=== PATIENT | female | born 1980 | race Caucasian/White ===

== ENCOUNTER 2019-01-27 04:41 | Emergency (ER) | payer MEDICAID, OTHER ==
[2019-01-27] MEDS ORDERED: KETOROLAC TROMETHAMINE INJ/PF 30 MG/1 ML SDV IV ONE (05:31)
[2019-01-27] MEDS ORDERED: ONDANSETRON HCL INJ/PF 4 MG/2 ML SDV IV ONE (05:31)
--- NOTE | 2019-01-27 05:34 | ER Document Report ---
ED General - General Chief Complaint: Abdominal Pain Stated Complaint: CHEST PAIN Time Seen by Provider: 01/27/19 05:22 Mode of Arrival: Ambulatory Information source: Patient Notes: This 38-year-old female presents emergency department with right upper quad abdominal pain that radiates to her back. She reports she feels very nauseated. Reports symptoms started last week. Patient is currently visiting [place] but lives in [facility]. She reports last week when the symptoms started she went to see her primary care provider who did some lab work-up. She was informed that her white count was up but nothing else. She is waiting for a gallbladder ultrasound. She reports for the last 2 days she is felt okay. She came to visit her daughter and had sloppy Roc's WITH [place] fries last night. Patient reports around 11 PM she woke up with the right upper quad pain that radiates to her back with nausea. TRAVEL OUTSIDE OF THE [place] IN LAST 30 DAYS: No - HPI Onset: Last week Quality of pain: Achy Severity: Severe Associated symptoms: Nausea Exacerbated by: Denies Relieved by: Denies Similar symptoms previously: Yes Recently seen / treated by doctor: Yes - Related Data Allergies/Adverse Reactions: No Known Allergies Allergy (Unverified 05/15/16 22:02) Past Medical History - General Information source: Patient - Social History Smoking Status: Current Every Day Smoker Cigarette use (# per day): Yes Frequency of alcohol use: None Drug Abuse: None Lives with: Family Family History: Reviewed & Not Pertinent Patient has suicidal ideation: No Patient has homicidal ideation: No - Medical History Medical History: Negative Past Surgical History: Reports: Hx Section, Hx Tubal Ligation Review of Systems - Review of Systems Notes: Review HPI for review of systems., All other systems negative Physical Exam - Vital signs Vitals: Temp Pulse Resp BP Pulse Ox 98.5 F 79 18 129/80 H 99 01/27/19 04:51 01/27/19 04:51 01/27/19 04:51 01/27/19 04:51 01/27/19 04:51 - General General appearance: Alert, Anxious In distress: Mild - HEENT Head: Normocephalic Eyes: Normal Conjunctiva: Normal Neck: Normal, Supple. No: Lymphadenopathy - Respiratory Respiratory status: No respiratory distress Chest status: Nontender Breath sounds: Normal Chest palpation: Normal - Cardiovascular Rhythm: Regular Heart sounds: Normal auscultation Murmur: No - Abdominal Inspection: Normal Distension: No distension Bowel sounds: Normal Tenderness: Tender - RUQ Organomegaly: No organomegaly - Back Back: Normal, Nontender - Extremities General upper extremity: Normal ROM General lower extremity: Normal ROM Course - Re-evaluation Re-evalutation: 01/27/19 05:38 38-year-old female presents with right upper quad abdominal pain that radiates to her back with nausea. Will evaluate for gallstones. Treat with Toradol and Zofran while waiting for results. 01/27/19 08:05 Leukocytes slightly elevated otherwise unremarkable, awaiting for official ultrasound report. pt reports she feels much better. Report given to CODEY Talbert. Dictation of this chart was performed using voice recognition software; therefor e, there may be some unintended grammatical errors. 01/27/19 05:30 01/27/19 05:30 MCV 83 fl (80-97) 01/27/19 05:30 MCH 27.3 pg (27.0-33.4) 01/27/19 05:30 MCHC 32.8 g/dL (32.0-36.0) 01/27/19 05:30 RDW 14.4 % (11.5-14.0) H 01/27/19 05:30 Seg Neutrophils % 73.1 % (42-78) 01/27/19 05:30 Lymphocytes % 19.4 % (13-45) 01/27/19 05:30 Monocytes % 5.7 % (3-13) 01/27/19 05:30 Eosinophils % 1.6 % (0-6) 01/27/19 05:30 Basophils % 0.2 % (0-2) 01/27/19 05:30 Absolute Neutrophils 10.0 10^3/uL (1.7-8.2) H 01/27/19 05:30 Absolute Lymphocytes 2.7 10^3/uL (0.5-4.7) 01/27/19 05:30 Absolute Monocytes 0.8 10^3/uL (0.1-1.4) 01/27/19 05:30 Absolute Eosinophils 0.2 10^3/uL (0.0-0.6) 01/27/19 05:30 Absolute Basophils 0.0 10^3/uL (0.0-0.2) 01/27/19 05:30 Chloride 104 mmol/L (98-107) 01/27/19 05:30 Carbon Dioxide 27 mmol/L (22-30) 01/27/19 05:30 Anion Gap 8 (5-19) 01/27/19 05:30 Est GFR ( Amer) > 60 (>60) 01/27/19 05:30 Est GFR (Non-Af Amer) > 60 (>60) 01/27/19 05:30 Glucose 127 mg/dL (75-110) H 01/27/19 05:30 Calcium 8.6 mg/dL (8.4-10.2) 01/27/19 05:30 Total Bilirubin 0.3 mg/dL (0.2-1.3) 01/27/19 05:30 AST 14 U/L (14-36) 01/27/19 05:30 Alkaline Phosphatase 85 U/L (38-126) 01/27/19 05:30 Total Protein 6.8 g/dL (6.3-8.2) 01/27/19 05:30 Albumin 3.8 g/dL (3.5-5.0) 01/27/19 05:30 Lipase 61.9 U/L (23-300) 01/27/19 05:30 Serum HCG, Qual NEGATIVE (NEGATIVE) 01/27/19 05:30 Urine Color YELLOW 01/27/19 06:38 Urine Appearance CLEAR 01/27/19 06:38 Urine pH 6.0 (5.0-9.0) 01/27/19 06:38 Ur Specific [place] 1.024 01/27/19 06:38 Urine Protein NEGATIVE mg/dL (NEGATIVE) 01/27/19 06:38 Urine Glucose (UA) NEGATIVE mg/dL (NEGATIVE) 01/27/19 06:38 Urine Ketones NEGATIVE mg/dL (NEGATIVE) 01/27/19 06:38 Urine Blood SMALL (NEGATIVE) H 01/27/19 06:38 Urine Nitrite NEGATIVE (NEGATIVE) 01/27/19 06:38 Ur Leukocyte Esterase NEGATIVE (NEGATIVE) 01/27/19 06:38 Urine WBC (Auto) 0 /HPF 01/27/19 06:38 Urine RBC (Auto) 3 /HPF 01/27/19 06:38 01/27/19 08:19 - Vital Signs Vital signs: Temp Pulse Resp BP Pulse Ox 97.9 F 74 16 123/77 100 01/27/19 08:58 01/27/19 08:58 01/27/19 09:03 01/27/19 08:58 01/27/19 08:58 - Laboratory Result Diagrams: 01/27/19 05:30 01/27/19 05:30 Laboratory results interpreted by me: 01/27/19 01/27/19 01/27/19 05:30 05:30 06:38 WBC 13.7 H RDW 14.4 H Absolute Neutrophils 10.0 H Glucose 127 H Urine Blood SMALL H - Diagnostic Test Radiology reviewed: Image reviewed Discharge - Discharge Clinical Impression: Abdominal pain, Gall bladder stones Condition: Stable Disposition: HOME, SELF-CARE Instructions: Abdominal Pain ([facility]), Antinausea Medication ([facility]), Antispasmodics ([facility]), Gallbladder Disease ([facility]), Low-Fat Diet ([facility]), Toradol Injection ([facility]) Additional Instructions: *You have been evaluated for abdominal pain, gall stones *Take medication as prescribed *low fat diet stay away from fatty foods *Follow up with a surgeon upon return to [facility] *Return to ED for worsening condition, changes, needs *Return to ED if not better in 24 hours Prescriptions: Dicyclomine HCl [Bentyl 20 mg Tablet] 20 mg PO QID #40 tablet Ketorolac Tromethamine [Toradol 10 mg Tablet] 10 mg PO Q6 #15 tablet Ondansetron [Zofran Odt 4 mg Tablet] 1 - 2 tab PO Q4H #10 tab.rapdis Forms: Elevated Blood Pressure
[2019-01-27 05:53] LABS: ABSOLUTE EOSINOPHILS # (AUTO) 0.2 10^3/uL (0.0-0.6); ABSOLUTE LYMPHOCYTES (AUTO) 2.7 10^3/uL (0.5-4.7); ABSOLUTE MONOCYTES (AUTO) 0.8 10^3/uL (0.1-1.4); BASOPHILS % (AUTO) 0.2 % (0-2); EOSINOPHILS % (AUTO) 1.6 % (0-6); HEMATOCRIT 37.9 % (36.0-47.0); HEMOGLOBIN 12.4 g/dL (12.0-15.5); LYMPHOCYTES % (AUTO) 19.4 % (13-45); MEAN CORPUSCULAR HEMOGLOBIN 27.3 pg (27.0-33.4); MEAN CORPUSCULAR HGB CONC 32.8 g/dL (32.0-36.0); MEAN CORPUSCULAR VOLUME 83 fl (80-97); MONOCYTES % (AUTO) 5.7 % (3-13); PLATELET COUNT 281 10^3/uL (150-450); RED BLOOD COUNT 4.56 10^6/uL (3.72-5.28); RED CELL DISTRIBUTION WIDTH 14.4 % (11.5-14.0); SEGMENTED NEUTROPHILS % (AUTO) 73.1 % (42-78); TOTAL CELLS COUNTED % (AUTO) 100 %; WHITE BLOOD COUNT 13.7 10^3/uL (4.0-10.5)
[2019-01-27 06:20] LABS: ALBUMIN 3.8 g/dL (3.5-5.0); ALKALINE PHOSPHATASE 85 U/L (38-126); ANION GAP 8 (5-19); ASPARTATE AMINO TRANSFERASE 14 U/L (14-36); BILIRUBIN,DIRECT 0.3 mg/dL (0.0-0.4); BILIRUBIN,TOTAL 0.3 mg/dL (0.2-1.3); BLOOD UREA NITROGEN 16 mg/dL (7-20); CALCIUM 8.6 mg/dL (8.4-10.2); CARBON DIOXIDE 27 mmol/L (22-30); CHLORIDE 104 mmol/L (98-107); GLUCOSE 127 mg/dL (75-110); POTASSIUM 4.5 mmol/L (3.6-5.0); TOTAL PROTEIN 6.8 g/dL (6.3-8.2)
[2019-01-27 06:59] LABS: APPEARANCE,URINE CLEAR; BILIRUBIN,URINE NEGATIVE (NEGATIVE); COLOR,URINE YELLOW; GLUCOSE, URINE NEGATIVE (NEGATIVE); KETONES,URINE NEGATIVE (NEGATIVE); LEUKOCYTE ESTERASE,URINE NEGATIVE (NEGATIVE); NITRITE,URINE NEGATIVE (NEGATIVE); PROTEIN,URINE NEGATIVE (NEGATIVE); URINE SPECIFIC GRAVITY 1.024; UROBILINOGEN,URINE NEGATIVE mg/dL (<2.0)
--- NOTE | 2019-01-27 08:21 | RADIOLOGY REPORT (SQ) ---
EXAM DESCRIPTION: U/S ABDOMEN LIMITED W/O DOP COMPLETED DATE/TIME: 01/27/2019 7:34 am REASON FOR STUDY: abd pain COMPARISON: None. TECHNIQUE: Dynamic and static grayscale images acquired of the abdomen and recorded on PACS. Additio nal selected color Doppler and spectral images recorded. LIMITATIONS: None. FINDINGS: PANCREAS: No masses. Visualized pancreatic duct normal caliber. LIVER: No masses. Echotexture normal. LIVER VASCULATURE: Normal directional flow of the main portal vein and hepatic veins. GALLBLADDER: Large gallstone in the gallbladder. Normal wall thickness. No pericholecystic fluid. ULTRASOUND-DETECTED GOMEZ'S SIGN: Negative. INTRAHEPATIC DUCTS AND COMMON DUCT: CBD and intrahepatic ducts normal caliber. No filling defects. INFERIOR VENA CAVA: Normal flow. AORTA: No aneurysm. RIGHT KIDNEY: Normal size. Normal echogenicity. No solid or suspicious masses. No hydronephrosis. No calcifications. PERITONEAL AND RIGHT PLEURAL SPACE: No ascites or effusions. OTHER: No other significant findings. IMPRESSION: Large gallstone in the gallbladder. No gallbladder wall thickening. No pericholecystic fluid. No biliary ductal dilation. Negative sonographic Gomez's sign. HIDA may be used to furthe r evaluate if cholecystitis is suspected. TECHNICAL DOCUMENTATION: JOB ID: [id number] [employer]- All Rights Reserved Reading location - IP/workstation name: [email or web address]
[2019-01-27 09:03] VITALS: BP 123/77
== END 2019-01-27 09:04 | disposition home or self-care (01) ==
LOC: ER 04:41
DX: K80.20 Calculus of gallbladder without cholecystitis without obstruction (principal); R10.11 Right upper quadrant pain; R11.0 Nausea; F17.210 Nicotine dependence, cigarettes, uncomplicated; Z98.51 Tubal ligation status
CPT/HCPCS: 36415; 76705; 80053; 81001; 83690; 84703; 85025